=== PATIENT | male | born 1960 | race Hispanic/Latino ===

== ENCOUNTER → 2023-10-13 | Emergency (ER) | payer SELFPAY ==
[~2023-10-13] MED LIST: D5 0.45 NS 1,000 ML IV ONE; DIPHENHYDRAMINE 50 MG/ML VIAL ONE; HALOPERIDOL LACT 5 MG/ML INJ ONE; KETAMINE HCL IN 0.9 % NACL 50 MG/5 ML SYRINGE IV ONE; LORazepam 2 MG/ML VIAL ONE; NA CHLORIDE 0.9% 1,000 ML ONE; TENECTEPLASE 50 MG/10 ML VIAL IV ONE
[2023-10-13 20:24] LABS: Absolute Lymphocytes (CBC) 2.3 K/uL (0.7-4.9); Hematocrit 40.4 % (39.6-49.0); Lymphocytes % 26.3 % (15.3-44.8); MCV 94.2 fL (80-100); MPV 6.6 fL (7.6-11.3); Platelets 253 thou/uL (152-406); RBC Red Blood Cell Count 4.29 M/uL (4.33-5.43)
[2023-10-13 20:34] LABS: Protime INR 1.08
[2023-10-13 20:46] LABS: ALT/SGPT 36 U/L (16-61); Albumin 3.4 g/dL (3.4-5.0); Alkaline Phosphatase 81 U/L (45-117); BUN Blood Urea Nitrogen 23 mg/dL (7-18); Bicarbonate 26 mEq/L (21-32); Bilirubin Total 0.5 mg/dL (0.2-1.0); Glomerular Filtration Rate 74 ml/min (=/>90); Glucose Level 98 mg/dL (74-106); Protein, Total 6.4 g/dL (6.4-8.2); Sodium Level 138 mEq/L (136-145); Troponin High Sensitivity 11.5 pg/mL (<58.9)
[2023-10-13 20:47] LABS: AST/SGOT 28 U/L (15-37); Bilirubin Direct < 0.1 mg/dL (0-0.2); Bilirubin Indirect, Calculated ND mg/dL (0.2-0.8); Potassium 4.6 mEq/L (3.5-5.1)
[2023-10-13 20:48] LABS: Magnesium 2.2 mg/dL (1.6-2.4)
--- NOTE | 2023-10-13 20:49 | RAD REPORT ---
EXAM DESCRIPTION: CT - Ct Stroke Brain Wo Cont - 10/13/2023 8:19 pm CLINICAL HISTORY: STROKE ALERT COMPARISON: No comparisons TECHNIQUE: Noncontrast head CT images were obtained without IV contrast. Multiplanar reformats were generated and reviewed. All CT scans are performed using dose optimization technique as appropriate and may include automated exposure control or mA/KV adjustment according to patient size. FINDINGS: No intracranial hemorrhage, mass, or edema. Midline structures are unremarkable. Normal ventricular caliber for age. Mercado-white matter differentiation is preserved, without evidence of acute infarct. No abnormal extra- axial fluid collections. Mastoid air cells and visualized portions of the paranasal sinuses are clear. No acute bony findings. IMPRESSION: No evidence of an acute intracranial process. The findings were communicated to Yuli Davila on 10/13/2023 at 20:44 hours.
--- NOTE | 2023-10-13 20:51 | RAD REPORT ---
EXAM DESCRIPTION: CT - Head angio - 10/13/2023 8:25 pm CLINICAL HISTORY: STROKE ALERT COMPARISON: Ct Stroke Brain Wo Cont dated 10/13/2023 TECHNIQUE: Axial CT angiography images of the head was performed with multiplanar and maximum intens ity projection reconstructions. Images performed following intravenous administration of 100mL Isovue 370. All CT scans are performed using dose optimization technique as appropriate and may include automated exposure control or mA/KV adjustment according to patient size. FINDINGS: Nondiagnostic exam due to extensive patient motion, with poor resolution of the [facility] of Max vessels despite attempts at repeat imaging. The visualized portions of the dural venous sinuses are grossly patent. IMPRESSION: Nondiagnostic exam as above.
--- NOTE | 2023-10-13 20:53 | RAD REPORT ---
EXAM DESCRIPTION: CT - Neck Angio - 10/13/2023 8:25 pm CLINICAL HISTORY: left hemiparesis COMPARISON: No comparisons TECHNIQUE: Axial CT angiography images of the head was performed with multiplanar and maximum intens ity projection reconstructions. Images performed following intravenous administration of 100mL Isovue 370. All CT scans are performed using dose optimization technique as appropriate and may include automated exposure control or mA/KV adjustment according to patient size. Quantification of carotid stenosis, if any, is performed according to NASCET criteria. FINDINGS: A left aortic arch is identified with variant 4 vessel configuration of the great vessels, with the left vertebral artery arising directly from the arch as the third vessel. The exam is otherwise nondiagnostic secondary to extensive patient motion. Major arterial and venous structures of the neck are not well resolved. Osseous structures are also not well resolved The visualized lung apices are unremarkable IMPRESSION: Nondiagnostic exam for the reasons mentioned above, with the exception of the aortic arc h which appears unremarkable. Yuli Davila in the ED was notified of this result. CAROTID STENOSIS REFERENCE USING NASCET CRITERIA: % ICA stenosis = (1 - narrowest ICA diameter/diameter of distal cervical ICA) x 100. Mild - <50% stenosis. Moderate - 50-69% stenosis. Severe - 70-94% stenosis. Near occlusion - 95-99% stenosis. Occluded - 100% stenosis.
--- NOTE | 2023-10-13 21:13 | EDPHYS ---
Physician Documentation [facility] Name: Christian Carroll Age: 63 yrs Sex: Male : 1960 Arrival Date: 10/13/2023 Time: 20:00 Bed 4 Private MD: ED Physician Jerry Merrill HPI: 10/13 20:13 This 63 yrs old Male presents to ER via Unassigned with complaints of Altered sp4 mental status . 20:13 63-year-old male brought in by EMS for choking episode at home. EMS reports on arrival sp4 patient has had sign of a stroke with left-sided facial asymmetry. On arrival to the emergency department patient has a dense left-sided hemiparesis also left visual field cut and gaze deviation to the right. EMS states family does not know the time of symptom onset. Last known well time is unknown. . 20:32 Correction --- the family arrived and we establish a timeframe for symptom onset. sp4 Family now states that specifically patient now states that symptom onset was at 6:30 PM after the dinner. Patient was drinking hot chocolate he began choking and developed altered mental status. This time timeframe is established and we will proceed with TNK. His states she will consent for TNK. Historical: - Allergies: 20:40 No Known Allergies; jj7 - PMHx: 20:40 Hypertensive disorder; jj7 - PSHx: 20:40 Appendectomy; jj7 - Immunization history:: Adult Immunizations not up to date, Client reports receiving the 2nd dose of the Covid vaccine, Last tetanus immunization: Flu vaccine is not up to date. - Social history:: Smoking status: Patient reports the use of cigarette tobacco products, cigars, Patient/guardian denies using alcohol, street drugs. - Family history:: not pertinent. ROS: 20:13 Constitutional: ROS not available secondary to nonverbal patient sp4 20:13 All other systems are negative, 20:13 Unable to obtain ROS due to altered mental status, patient's inability to understand questions, Exam: 20:13 Constitutional: This is a well developed, well nourished patient who is nonverbal at sp4 this time, dense left-sided paralysis left facial asymmetry gaze deviation to the right. Patient not able to cooperate or provide any history. Head/Face: Normocephalic, atraumatic. Eyes: Pupils equal round and reactive to light, Lids and lashes normal. Conjunctiva and sclera are not injected. Cornea within normal limits. Periorbital areas with no swelling, redness, or edema. ENT: Nares patent. No nasal discharge, no septal abnormalities noted. Tympanic membranes are normal and external auditory canals are clear. Oropharynx with no redness, swelling, or masses, exudates, or evidence of obstruction, uvula midline. Mucous membranes moist. Neck: Trachea midline, no thyromegaly or masses palpated, and no cervical lymphadenopathy. Supple, full range of motion without nuchal rigidity, or vertebral point tenderness. Chest/axilla: Normal chest wall appearance and motion. Nontender with no deformity. No lesions are appreciated. Cardiovascular: Regular rate and rhythm with a normal S1 and S2. No gallops, murmurs, or rubs. Normal PMI, no JVD. No pulse deficits. Respiratory: Lungs have equal breath sounds bilaterally, clear to auscultation and percussion. No rales, rhonchi or wheezes noted. No increased work of breathing, no retractions or nasal flaring. Abdomen/GI: Soft, non-tender, with normal bowel sounds. No distension or tympany. No guarding or rebound. No evidence of tenderness throughout. Back: No spinal tenderness. No costovertebral tenderness. There is sacral decubitus ulcer that is covered by the wound VAC. Male : Normal genitalia with no discharge or lesions. Skin: Warm, dry with normal turgor. Normal color with no rashes, no lesions, and no evidence of cellulitis. MS/ Extremity: Pulses equal, no cyanosis. Neurovascular intact. Exam is limited secondary to left hemiparesis Neuro: Awake and alert , nonverbal at this time, patient is not able to cooperate, left hemiparesis, left facial asymmetry, gaze deviation to the right 22:56 ECG was reviewed by the Attending Physician. EKG at 2126, normal sinus rhythm with sp4 sinus arrhythmia at a rate of 66. Vital Signs: 20:12 BP 153 / 113; Pulse 73; Resp 19; Pulse Ox 98% ; jj7 20:30 BP 152 / 140; Pulse 108; Resp 20; Pulse Ox 98% ; jj7 20:45 BP 143 / 118; Pulse 101; Resp 18; Pulse Ox 97% ; j7 20:51 Weight 65.77 kg; 7 21:00 BP 149 / 129; Pulse 84; Resp 19; Pulse Ox 98% ; j7 21:15 BP 117 / 75; Pulse 60; Resp 19; Pulse Ox 96% ; j7 21:30 BP 91 / 75; Pulse 70; Resp 17; Pulse Ox 99% ; j7 21:45 BP 153 / 85; Pulse 61; Resp 17; Pulse Ox 96% ; j7 22:15 BP 122 / 83; Pulse 64; Resp 19; Pulse Ox 96% ; 7 22:26 Temp 97.6(O); rv1 22:30 BP 125 / 84; Pulse 78; Resp 16; Pulse Ox 98% ; 7 23:00 BP 129 / 104; Pulse 81; Resp 19; Pulse Ox 100% on NC; j7 10/14 00:00 BP 133 / 79; Pulse 60; Resp 17; Temp 97.6; Pulse Ox 99% on NC; j7 NIH Stroke Scale Scores: 10/13 20:13 NIHSS Score: 27 sp4 20:53 NIHSS Score: 26 rv Paramjit Coma Score: 20:13 Eye Response: spontaneous(4). Motor Response: localizes pain(5). Verbal Response: sp4 none(1). Total: 10. 23:45 Eye Response: to voice(3). Motor Response: localizes pain(5). Verbal Response: rv confused(4). Total: 12. MDM: 20:33 ED course: Preliminary CT report reveals no intracranial hemorrhage will go ahead and sp4 order TNK at this time. At this time patient is 2 hours and 4 minutes from the symptom onset. . 20:35 Patient medically screened. sp4 21:11 Differential Diagnosis altered mental status, sepsis, flu. Data reviewed: vital signs, sp4 nurses notes, EMS record, lab test result(s), EKG, radiologic studies, CT scan. ED course: TNK was pushed at 2056 . 23:49 Consideration of Admission/Observation Patient was admitted/placed on observation. sp4 Escalation of care including admission/observation considered. Management of patient was discussed with the following: Preschool Director: Neurologist at the [facility]. ED course: Patient was discussed with neurologist at [facility] Dr. Eid who requested patient transfer via air medical transport. 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 . 10/14 00:01 ED course: Chest - EXAM DESCRIPTION: Romaine Single View10/13/2023 8:39 pm CLINICAL sp4 HISTORY: Left hemiparesis COMPARISON: No comparisons TECHNIQUE: Portable AP view of the chest. FINDINGS: Decreased inspiratory effort limits evaluation. Blunting of the left costophrenic angle may reflect atelectasis, prominent epicardial fat, or a small effusion. No pneumothorax or sizable effusion. The cardiomediastinal contours are unremarkable. IMPRESSION: Blunting of the left costophrenic angle as above.. ED course: CT head - CLINICAL HISTORY: STROKE ALERT COMPARISON: No comparisons TECHNIQUE: Noncontrast head CT images were obtained without IV contrast. Multiplanar reformats were generated and reviewed. All CT scans are performed using dose optimization technique as appropriate and may include automated exposure control or mA/KV adjustment according to patient size. FINDINGS: No intracranial hemorrhage, mass, or edema. Midline structures are unremarkable. Normal ventricular caliber for age. Mercado-white matter differentiation is preserved, without evidence of acute infarct. No abnormal extra-axial fluid collections. Mastoid air cells and visualized portions of the paranasal sinuses are clear. No acute bony findings. IMPRESSION: No evidence of an acute intracranial process. The findings were communicated to Yuli Davila on 10/13/2023 at 20:44 hours. . 00:13 ED course: I was contacted by the neurologist at [facility] who has reported sp4 that patient has a right middle cerebral artery occlusion.. Patient warrants an emergent transfer to [facility] for further intervention. . 00:17 ED course: CT report by radiology at 00:17 right MCA superior division occlusion, Right sp4 ICA occlusion . . 00:30 ED course: CT - IMPRESSION: 1. There is little to no opacification of the right ICA sp4 consistent with occlusion. 2. There is reconstitution of the right MCA with diminished opacification. There is abrupt cut off of the superior division of the right MCA (M2) suggestive of occlusion. 3. The right SOWMYA is normally opacified. . ED course: CTA - COMPARISON: None. FINDINGS: VASCULATURE: Right common carotid artery: Unremarkable. No occlusion or significant stenosis. No dissection. Right internal carotid artery: There is abrupt cut off of the right ICA at the level of C3 consistent with occlusion. Right external carotid artery: Unremarkable. No occlusion. Right vertebral artery: Unremarkable. No occlusion or significant stenosis. No dissection. Left common carotid artery: Unremarkable. No occlusion or significant stenosis. No dissection. Left internal carotid artery: Unremarkable. Extracranial segment is patent with no occlusion or significant stenosis. No dissection. Left external carotid artery: Unremarkable. No occlusion. Left vertebral artery: Diminutive left vertebral artery. No occlusion or significant stenosis. No dissection. NECK: Bones/joints: See above. Soft tissues: Unremarkable. Lung apices: Clear. 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 . 10/13 20:12 Order name: Basic Metabolic Panel; Complete Time: :57 [facility] 10/13 20:12 Order name: CBC with Diff; Complete Time: : [facility] 10/13 20:12 Order name: Hepatic Function; Complete Time: : [facility] 10/13 20:12 Order name: High Sensitivity Troponin; Complete Time: :57 [facility] 10/13 20:12 Order name: Magnesium; Complete Time: :57 [facility] 10/13 20:12 Order name: Protime (+inr); Complete Time: :57 [facility] 10/13 20:12 Order name: Ptt, Activated; Complete Time: :57 [facility] 10/13 20:12 Order name: UDS; Complete Time: 23:48 [facility] 10/13 20:12 Order name: CT Head Angio; Complete Time: :57 [facility] 10/13 20:12 Order name: CT Neck Angio; Complete Time: :57 [facility] 10/13 20:12 Order name: CT Stroke Brain w/o Contrast; Complete Time: :57 [facility] 10/13 20:12 Order name: Stroke CXR 1 View; Complete Time: :57 [facility] 10/13 22:21 Order name: CT Head Angio [facility] 10/13 22:22 Order name: CT Neck Angio [facility] 10/13 20:12 Order name: EKG; Complete Time: 20:13 [facility] 10/13 20:12 Order name: Accucheck; Complete Time: 20:44 [facility] 10/13 20:12 Order name: Cardiac monitoring; Complete Time: 20:44 sp4 10/13 20:12 Order name: EKG - Nurse/Tech; Complete Time: 21:54 sp4 10/13 20:12 Order name: IV Saline Lock; Complete Time: 20:44 sp4 10/13 20:12 Order name: Labs collected and sent; Complete Time: 20:44 sp4 10/13 20:12 Order name: NPO; Complete Time: 20:44 sp4 10/13 20:12 Order name: O2 Per Protocol; Complete Time: 20:44 sp4 10/13 20:12 Order name: O2 Sat Monitoring; Complete Time: 20:44 sp4 10/13 20:12 Order name: Stroke Swallow Screen; Complete Time: 22:17 sp4 10/13 21:55 Order name: [place]; Complete Time: 22:01 sp4 EC/08 22:56 Rate is 66 beats/min. Rhythm is regular, Normal Sinus Rhythm. QRS [place] is Normal. LA sp4 interval is normal. QRS interval is normal. QT interval is normal. No Q waves. T waves are Normal. No ST changes noted. Clinical impression: Normal ECG. Interpreted by me. Reviewed by me. Administered Medications: 20:57 Drug: TNK FOR STROKE - Tenecteplase IV 0.25 mg/kg IV at per protocol once; MAX rv DOSE 25 mg, IVP over 5 seconds {Co-Signature: jj7 (Caden Lancaster RN).} Route: IV; Rate: per protocol; Site: left antecubital; 23:47 Follow up: Response: No adverse reaction jj7 21:13 Drug: Ativan IVP 2 mg IVP once Route: IVP; Site: left antecubital; jj7 23:00 Follow up: Response: Anxiety decreased jj7 21:50 Drug: Haloperidol IVP 5 mg IVP once Route: IVP; Site: left antecubital; jj7 23:00 Follow up: Response: No adverse reaction; Anxiety decreased jj7 22:17 Drug: NS 0.9% IV 1000 ml IV at 1 bolus Per protocol; 1000 mL bolus Route: IV; Rate: 1 jj7 bolus; Site: left antecubital; 10/14 00:18 Follow up: IV Status: Infusion continued upon transfer j7 10/13 22:17 Drug: D5-NS IV 1000 ml IV at 125 ml/hr continuous Route: IV; Rate: 125 ml/hr; Site: [facility] left antecubital; 10/14 00:18 Follow up: IV Status: Infusion continued upon transfer jj7 10/13 23:02 Drug: diphenhydrAMINE IVP 25 mg IVP once Route: IVP; Site: left antecubital; jj7 23:46 Follow up: Response: No adverse reaction j7 23:03 Drug: Ativan IVP 1 mg IVP once Route: IVP; Site: left antecubital; jj7 23:47 Follow up: Response: No adverse reaction j7 23:16 Drug: Ketamine IVP 100 mg IVP once {Note: ADMIN BY DR GIMENEZ.} Route: IVP; Site: left [facility] antecubital; 23:46 Follow up: Response: RASS: Light sedation (-2) jj7 Disposition Summary: 10/13/23 21:12 Transfer Ordered Notes: Transfer Location: [facility] sp4 Reason: Higher level of care sp4 Condition: Stable sp4 Problem: new sp4 Symptoms: have improved sp4 Accepting Physician: [place] (10/14/23 00:17) jj7 Diagnosis - Acute ischemic CVA, left-sided hemiparesis, global aphasia sp4 - Right middle cerebral artery occlusion sp4 - Agitation requiring sedation sp4 Forms: - Medication Reconciliation Form sp4 - SBAR form sp4 NIH Stroke Scale - NIH Stroke Score Date: 10/13/2023 Time: 20:13 Total Score = 27 10. Dysarthria (speech clarity - read or repeat words) - 2(Severe) 11. Extinction and Inattention (visual/tactile/auditory/spatial/personal) - 2(Profound) 1a. Level of Consciousness (LOC) - 0(Alert) 1b. Level of Consciousness (LOC) (Month \T\ Age) - 2(Neither) 1c. LOC Commands (Open \T\ Closes Eyes/Geodetic Survey Director) - 1(One) 2. Best Gaze (Lateral Gaze Paresis) - 2(Forced deviation) 3. Visual Field Loss - 2(Complete hemianopia) 4. Facial Palsy - 3(Complete paralysis) 5a. Left Arm: Motor (10-second hold) - 4(No movement) 5b. Right Arm: Motor (10-second hold) - 0(No drift) 6a. Left Leg: Motor (5-second hold - always test supine) - 4(No movement) 6b. Right Leg: Motor (5-second hold - always test supine) - 0(No drift) 7. Limb Ataxia (finger/nose \T\ heel/naqvi - test with eyes open) - 0(Absent) 8. Sensory Loss (pinprick arms/legs/face) - 2(Severe to total loss) 9. Best Language: Aphasia (description/naming/reading) - 3(Mute, global aphasia) Initials: sp4 NIH Stroke Scale - NIH Stroke Score Date: 10/13/2023 Time: 20:53 Total Score = 26 10. Dysarthria (speech clarity - read or repeat words) - 2(Severe) 11. Extinction and Inattention (visual/tactile/auditory/spatial/personal) - 2(Profound) 1a. Level of Consciousness (LOC) - 0(Alert) 1b. Level of Consciousness (LOC) (Month \T\ Age) - 2(Neither) 1c. LOC Commands (Open \T\ Closes Eyes/Geodetic Survey Director) - 1(One) 2. Best Gaze (Lateral Gaze Paresis) - 1(Partial gaze palsy) 3. Visual Field Loss - 1(Partial hemianopia) 4. Facial Palsy - 3(Complete paralysis) 5a. Left Arm: Motor (10-second hold) - 4(No movement) 5b. Right Arm: Motor (10-second hold) - 0(No drift) 6a. Left Leg: Motor (5-second hold - always test supine) - 4(No movement) 6b. Right Leg: Motor (5-second hold - always test supine) - 0(No drift) 7. Limb Ataxia (finger/nose \T\ heel/naqvi - test with eyes open) - 2(Present in two limbs) 8. Sensory Loss (pinprick arms/legs/face) - 2(Severe to total loss) 9. Best Language: Aphasia (description/naming/reading) - 2(Severe aphasia) Initials: rv Signatures: Dispatcher [employer] EDTerrence Valle RN RN rv Johnson, Juwairiyah, RN RN jjJerry Liz MD MD sp4 Caden Lancaster RN jj7 Corrections: (The following items were deleted from the chart) 23:51 21:12 [facility] neurology sp4 sp4 10/14 00:17 10/13 23:51 [facility] neurology sp4 jj7
--- NOTE | 2023-10-13 21:13 | ER ---
Nurse's Notes [facility] Name: Christian Carroll Age: 63 yrs Sex: Male : 1960 Arrival Date: 10/13/2023 Time: 20:00 Bed 4 Private MD: Diagnosis: Acute ischemic CVA, left-sided hemiparesis, global aphasia;Right middle cerebral artery occlusion;Agitation requiring sedation Presentation: 10/13 20:12 Chief complaint: EMS states: EMS STATES THEY WERE ORIGINALLY CALLED OUT FOR CHOKING. jj7 FAMILY REPORTED TO THEM HE WAS ON THE COUCH DRINKING HOT CHRISTINE AND STARTED TO CHOKE. WHEN THEY SAW PT HE HAD LEFT SIDED FACIAL DROOPING. WHEN EMS ASKED FAMILY DID THAT JUST START. FAMILY INFORMED EMS HIS FACE HAS BEEN LOOKING "WEIRD" ALL DAY LONG. Coronavirus screen: At this time, the client does not indicate any symptoms associated with coronavirus-19. Ebola Screen: No symptoms or risks identified at this time. Initial Sepsis Screen: Does the patient meet any 2 criteria? No. Patient's initial sepsis screen is negative. Does the patient have a suspected source of infection? No. Patient's initial sepsis screen is negative. Risk Assessment: Do you want to hurt yourself or someone else? Patient reports no desire to harm self or others. Onset of symptoms is unknown. 20:12 Method Of Arrival: EMS: [facility] jj7 20:12 Acuity: JESIKA 2 jj7 20:12 Care prior to arrival: IV initiated. 20 GA, in the left antecubital area, Glucose jj7 check: 104. 20:12 Chief complaint: Spouse and/or significant other states: STATES ALL OF THIS jj7 STARTED AT 1830. AFTER THEY ATE DINNER HE WANTED SOME CHOCOLATE AND HE GOT UP AND THEY THOUGHT HE WAS CHOKING. Triage Assessment: 20:12 General: Appears distressed, Behavior is flat, CONFUSED. Pain: Unable to use pain jj7 scale. Does not appear to understand pain scale. Neuro: Gooden Agitation-Sedation Scale (RASS): Level of Consciousness is awake, confused, Oriented to NOT ANSWERING ANY QUESTIONS. Historical: - Allergies: 20:40 No Known Allergies; jj7 - PMHx: 20:40 Hypertensive disorder; jj7 - PSHx: 20:40 Appendectomy; jj7 - Immunization history:: Adult Immunizations not up to date, Client reports receiving the 2nd dose of the Covid vaccine, Last tetanus immunization: Flu vaccine is not up to date. - Social history:: Smoking status: Patient reports the use of cigarette tobacco products, cigars, Patient/guardian denies using alcohol, street drugs. - Family history:: not pertinent. Screenin:05 [facility] ED Fall Risk Assessment (Adult) History of falling in the last 3 months, jj7 including since admission No falls in past 3 months (0 pts) Confusion or Disorientation Yes (5 pts) Intoxicated or Sedated No (0 pts) Impaired Gait Yes (1 pt) Mobility Assist Device Used No (0 pt) Altered Elimination No (0 pt) Score/Fall Risk Level 3 or more points = High Risk Oriented to surroundings, Maintained a safe environment, Educated pt \\T\\ family on fall prevention, incl call for assistance when getting out of bed. Abuse screen: Denies threats or abuse. Nutritional screening: No deficits noted. Tuberculosis screening: No symptoms or risk factors identified. 22:21 [place] Swallow Protocol Exclusion Criteria: NPO for medical/surgical reason by provider jj7 order Yes. Assessment: 21:00 Reassessment:. General: Behavior is agitated, uncooperative. jj7 21:15 Reassessment: PT OFF UNIT FOR CT. jj7 21:57 General: Behavior is calm. Neuro:. jj7 23:24 Reassessment: PT BACK IN ROOM. jj7 23:55 Reassessment: REPORT GIVEN TO PEDRO LUIS RN WITH IR AT [facility]. jj7 10/14 00:04 Reassessment: [facility] AT BEDSIDE TO TRANSFER PT. REPORT GIVE TO [facility]W. jj7 00:16 Reassessment: REPORT GIVEN TO PETTY DOWELL AT [facility] ICU. jj7 Vital Signs: 10/13 20:12 BP 153 / 113; Pulse 73; Resp 19; Pulse Ox 98% ; jj7 20:30 BP 152 / 140; Pulse 108; Resp 20; Pulse Ox 98% ; jj7 20:45 BP 143 / 118; Pulse 101; Resp 18; Pulse Ox 97% ; jj7 20:51 Weight 65.77 kg; jj7 21:00 BP 149 / 129; Pulse 84; Resp 19; Pulse Ox 98% ; j7 21:15 BP 117 / 75; Pulse 60; Resp 19; Pulse Ox 96% ; j7 21:30 BP 91 / 75; Pulse 70; Resp 17; Pulse Ox 99% ; jj7 21:45 BP 153 / 85; Pulse 61; Resp 17; Pulse Ox 96% ; jj7 22:15 BP 122 / 83; Pulse 64; Resp 19; Pulse Ox 96% ; j7 22:26 Temp 97.6(O); rv1 22:30 BP 125 / 84; Pulse 78; Resp 16; Pulse Ox 98% ; jj7 23:00 BP 129 / 104; Pulse 81; Resp 19; Pulse Ox 100% on NC; j7 10/14 00:00 BP 133 / 79; Pulse 60; Resp 17; Temp 97.6; Pulse Ox 99% on NC; j7 Paramjit Coma Score: 10/13 20:13 Eye Response: spontaneous(4). Motor Response: localizes pain(5). Verbal Response: sp4 none(1). Total: 10. 23:45 Eye Response: to voice(3). Motor Response: localizes pain(5). Verbal Response: rv confused(4). Total: 12. NIH Stroke Scale Scores: 20:13 NIHSS Score: 27 sp4 20:53 NIHSS Score: 26 rv ED Course: 20:05 Patient has correct armband on for positive identification. Placed in gown. Bed in low jj7 position. Call light in reach. Side rails up X2. Adult w/ patient. Client placed on continuous cardiac and pulse oximetry monitoring. NIBP monitoring applied. clinical research monitor on. Pulse ox on. Warm blanket given. 20:05 No provider procedures requiring assistance completed. Maintain EMS IV. Dressing jj7 intact. Good blood return noted. Site clean \\T\\ dry. Gauge \\T\\ site: 20 L AC. 20:12 Patient arrived in ED. jj7 20:12 Jerry Merrill MD is Attending Physician. sp4 20:12 Arm band placed on right wrist. Patient placed in an exam room, on a stretcher. jj7 20:19 Triage completed. jj7 20:21 CT Stroke Brain w/o Contrast In Process Unspecified. EDMS 20:27 CT Head Angio In Process Unspecified. EDMS 20:27 CT Neck Angio In Process Unspecified. EDMS 20:41 Stroke CXR 1 View In Process Unspecified. EDMS 20:45 Basic Metabolic Panel Sent. jj7 20:45 Hepatic Function Sent. jj7 20:45 High Sensitivity Troponin Sent. jj7 20:45 Magnesium Sent. jj7 21:50 [place] cath inserted, using sterile technique, 16 Fr., Patient tolerated well. jj7 22:08 Initiated transfer with Macy at [facility]. rv1 22:17 UDS Sent. jj7 22:37 pt accepted [facility] [address] [id number] bed 11. pt to be transported by [facility] ([facility]) eta 10 mins. 23:20 CT Head Angio In Process Unspecified. EDMS 23:21 CT Neck Angio In Process Unspecified. EDMS 23:[address] cleaning, accepting admin saleem renteria. [facility] 10/14 00:16 Patient transferred, IV remains in place. jj7 Administered Medications: 10/13 20:57 Drug: TNK FOR STROKE - Tenecteplase IV 0.25 mg/kg IV at per protocol once; MAX rv DOSE 25 mg, IVP over 5 seconds {Co-Signature: jj7 (Caden Lancaster RN).} Route: IV; Rate: per protocol; Site: left antecubital; 23:47 Follow up: Response: No adverse reaction jj7 21:13 Drug: Ativan IVP 2 mg IVP once Route: IVP; Site: left antecubital; jj7 23:00 Follow up: Response: Anxiety decreased jj7 21:50 Drug: Haloperidol IVP 5 mg IVP once Route: IVP; Site: left antecubital; jj7 23:00 Follow up: Response: No adverse reaction; Anxiety decreased jj7 22:17 Drug: NS 0.9% IV 1000 ml IV at 1 bolus Per protocol; 1000 mL bolus Route: IV; Rate: 1 jj7 bolus; Site: left antecubital; 10/14 00:18 Follow up: IV Status: Infusion continued upon transfer jj7 10/13 22:17 Drug: D5-NS IV 1000 ml IV at 125 ml/hr continuous Route: IV; Rate: 125 ml/hr; [facility]; 10/14 00:18 Follow up: IV Status: Infusion continued upon transfer [facility] 10/13 23:02 Drug: diphenhydrAMINE IVP 25 mg IVP once Route: IVP; Site: left antecubital; [facility] 23:46 Follow up: Response: No adverse reaction [facility] 23:03 Drug: Ativan IVP 1 mg IVP once Route: IVP; [facility] 23:47 Follow up: Response: No adverse reaction [facility] 23:16 Drug: Ketamine IVP 100 mg IVP once {Note: ADMIN BY DR GIMENEZ.} Route: IVP; Site: left [address]; 23:46 Follow up: Response: RASS: Light sedation (-2) [facility] Medication: 20:05 VIS not applicable for this client. [facility] Outcome: 21:12 ER care complete, transfer ordered by MD. hadley 10/14 00:15 Transferred by helicopter to [facility], [facility] Condition: stable 00:17 Patient left the ED. [facility] NIH Stroke Scale - NIH Stroke Score Date: 10/13/2023 Time: 20:13 Total Score = 27 10. Dysarthria (speech clarity - read or repeat words) - 2(Severe) 11. Extinction and Inattention (visual/tactile/auditory/spatial/personal) - 2(Profound) 1a. Level of Consciousness (LOC) - 0(Alert) 1b. Level of Consciousness (LOC) (Month \\T\\ Age) - 2(Neither) 1c. LOC Commands (Open \\T\\ Closes Eyes/Electric Razor Assembler) - 1(One) 2. Best Gaze (Lateral Gaze Paresis) - 2(Forced deviation) 3. Visual Field Loss - 2(Complete hemianopia) 4. Facial Palsy - 3(Complete paralysis) 5a. Left Arm: Motor (10-second hold) - 4(No movement) 5b. Right Arm: Motor (10-second hold) - 0(No drift) 6a. Left Leg: Motor (5-second hold - always test supine) - 4(No movement) 6b. Right Leg: Motor (5-second hold - always test supine) - 0(No drift) 7. Limb Ataxia (finger/nose \\T\\ heel/naqvi - test with eyes open) - 0(Absent) 8. Sensory Loss (pinprick arms/legs/face) - 2(Severe to total loss) 9. Best Language: Aphasia (description/naming/reading) - 3(Mute, global aphasia) Initials: sp4 NIH Stroke Scale - NIH Stroke Score Date: 10/13/2023 Time: 20:53 Total Score = 26 10. Dysarthria (speech clarity - read or repeat words) - 2(Severe) 11. Extinction and Inattention (visual/tactile/auditory/spatial/personal) - 2(Profound) 1a. Level of Consciousness (LOC) - 0(Alert) 1b. Level of Consciousness (LOC) (Month \\T\\ Age) - 2(Neither) 1c. LOC Commands (Open \\T\\ Closes Eyes/Electric Razor Assembler) - 1(One) 2. Best Gaze (Lateral Gaze Paresis) - 1(Partial gaze palsy) 3. Visual Field Loss - 1(Partial hemianopia) 4. Facial Palsy - 3(Complete paralysis) 5a. Left Arm: Motor (10-second hold) - 4(No movement) 5b. Right Arm: Motor (10-second hold) - 0(No drift) 6a. Left Leg: Motor (5-second hold - always test supine) - 4(No movement) 6b. Right Leg: Motor (5-second hold - always test supine) - 0(No drift) 7. Limb Ataxia (finger/nose \\T\\ heel/naqvi - test with eyes open) - 2(Present in two limbs) 8. Sensory Loss (pinprick arms/legs/face) - 2(Severe to total loss) 9. Best Language: Aphasia (description/naming/reading) - 2(Severe aphasia) Initials: rv Signatures: Dispatcher [employer] Terrence Ratliff RN RN Caden Pineda RN RN jj7 Savita Hart rv1 Jerry Merrill MD MD spOfelia Willoughby Juwairiyah RN jj7 Corrections: (The following items were deleted from the chart) 10/13 23:24 23:17 Reassessment: PT OFF UNIT FOR CT jchris jj7
--- NOTE | 2023-10-13 21:22 | RAD REPORT ---
EXAM DESCRIPTION: Romaine Single View10/13/2023 8:39 pm CLINICAL HISTORY: Left hemiparesis COMPARISON: No comparisons TECHNIQUE: Portable AP view of the chest. FINDINGS: Decreased inspiratory effort limits evaluation. Blunting of the left costophrenic angle ma y reflect atelectasis, prominent epicardial fat, or a small effusion. No pneumothorax or sizable eff usion. The cardiomediastinal contours are unremarkable. IMPRESSION: Blunting of the left costophrenic angle as above.
[2023-10-13 23:02] LABS: Barbiturates NEGATIVE (NEGATIVE); Benzodiazepines NEGATIVE (NEGATIVE); Cocaine NEGATIVE (NEGATIVE); METHAMPHETAM NEGATIVE (NEGATIVE); Methadone NEGATIVE (NEGATIVE); Opiates NEGATIVE (NEGATIVE); Phencyclidine NEGATIVE (NEGATIVE); THC Cannibis POSITIVE (NEGATIVE)
[2023-10-14 04:31] VITALS: BP 133/79; TEMP 97.6; O2SAT 99
--- NOTE | 2023-10-14 17:24 | RAD REPORT ---
EXAM DESCRIPTION: CT - Neck Angio - 10/14/2023 6:43 am CLINICAL HISTORY: The patient is 63 years old and is Male; acute TECHNIQUE: Routine carotid CT angiography protocol was performed with intravenous contrast. NASCET criteria using the distal ICAs for comparison were used for evaluation of stenoses. Sagittal and c oronal reformatted images were created and reviewed. This CT exam was performed using one or more o f the following dose reduction techniques: automated exposure control, adjustment of the mA and/or kV according to patient size, and/or use of iterative reconstruction technique. MIP reconstructed i mages were created and reviewed. COMPARISON: None. FINDINGS: VASCULATURE: Right common carotid artery: Unremarkable. No occlusion or significant stenosis. No dissectio n. Right internal carotid artery: There is abrupt cut off of the right ICA at the level of C3 consis tent with occlusion. Right external carotid artery: Unremarkable. No occlusion. Right vertebral artery: Unremarkable. No occlusion or significant stenosis. No dissection. Left common carotid artery: Unremarkable. No occlusion or significant stenosis. No dissection . Left internal carotid artery: Unremarkable. Extracranial segment is patent with no occlusion or significant stenosis. No dissection. Left external carotid artery: Unremarkable. No occlusion. Left vertebral artery: Diminutive left vertebral artery. No occlusion or significant stenosis. No dissection. NECK: Bones/joints: See above. Soft tissues: Unremarkable. Lung apices: Clear. CAROTID STENOSIS REFERENCE USING NASCET CRITERIA: % ICA stenosis = (1 - narrowest ICA diameter/diameter of distal cervical ICA) x 100. Mild - <50% stenosis. Moderate - 50-69% stenosis. Severe - 70-94% stenosis. Near occlusion - 95-99% stenosis. Occluded - 100% stenosis. 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 THIS REPORT CONTAINS FINDINGS THAT MAY BE CRITICAL TO PATIENT CARE: The findings were verbally discus sed via telephone conference with Dr. Jerry Merrill by Dr. Galo Tse on 10/14/2023 12:17 AM LAW OFFICE MANAGER .The results were acknowledged and understood. Electronically signed by: Galo Tse MD 10/14/2023 12:25 AM LAW OFFICE MANAGER Due to temporary technical issues with the PACS/Fluency reporting system, reports are being signed by the in house radiologists without review as a courtesy to insure prompt reporting. The interpreting radiologist is fully responsible for the content of the report.
--- NOTE | 2023-10-14 17:29 | RAD REPORT ---
EXAM DESCRIPTION: CT - Head angio - 10/14/2023 6:43 am ADDENDUM #1 THIS REPORT CONTAINS FINDINGS THAT MAY BE CRITICAL TO PATIENT CARE: The findings were verbally discus sed via telephone conference with Dr. Jerry Merrill by Dr. Galo Tse on 10/14/2023 12:19 AM DEBURRER .The results were acknowledged and understood. Electronically signed by: Galo Tse MD 10/14/2023 12:19 AM [facility] End of Addendum EXAM: CT Angiography Head With Intravenous Contrast CLINICAL HISTORY: The patient is 63 years old and is Male; STROKE ALERT TECHNIQUE: Axial computed tomographic angiography images of the head with intravenous contrast. Sa gittal and coronal reformatted images were created and reviewed. This CT exam was performed using o ne or more of the following dose reduction techniques: automated exposure control, adjustment of th e mA and/or kV according to patient size, and/or use of iterative reconstruction technique. MIP rec onstructed images were created and reviewed. COMPARISON: No relevant prior studies available. FINDINGS: Right internal carotid artery: There is little to no opacification of the right ICA cons istent with occlusion. No aneurysm. Right anterior cerebral artery: The right SOWMYA is normally opacified. No occlusion or significant stenosis. No aneurysm. Right middle cerebral artery: There is reconstitution of the right MCA with diminished opacificat ion. There is abrupt cut off of the superior division of the right MCA (M2) suggestive of occlusion. Right posterior cerebral artery: Right origin PAPER REWINDER. No occlusion or significant stenosis. No aneurysm. Right vertebral artery: Unremarkable as visualized. Left internal carotid artery: No acute findings. Intracranial segment is patent with no signifi cant stenosis. No aneurysm. Left anterior cerebral artery: Unremarkable. No occlusion or significant stenosis. No aneurys m. Left middle cerebral artery: Unremarkable. No occlusion or significant stenosis. No aneurysm. Left posterior cerebral artery: Left origin PAPER REWINDER. No occlusion or significant stenosis. No aneurysm. Left vertebral artery: Diminutive left vertebral artery. Basilar artery: Unremarkable. No occlusion or significant stenosis. No aneurysm. IMPRESSION: 1. There is little to no opacification of the right ICA consistent with occlusion. 2. There is reconstitution of the right MCA with diminished opacification. There is abrupt cut off of the superior division of the right MCA (M2) suggestive of occlusion. 3. The right SOWMYA is normally opacified. Electronically signed by: Galo Tse MD 10/14/2023 12:16 AM DEBURRER Due to temporary technical issues with the PACS/Fluency reporting system, reports are being signed by the in house radiologists without review as a courtesy to insure prompt reporting. The interpreting radiologist is fully responsible for the content of the report.
--- NOTE | 2023-10-15 17:38 | EKG ---
Test Date: 2023-10-13 Test Time: 21:27:44 Wool Buyer: RASTA MEASUREMENT RESULTS: Intervals: Rate: 66 DE: 162 QRSD: 90 QT: 416 QTc: 436 [place]: P: 23 DE: 162 QRS: 19 T: 26 INTERPRETIVE STATEMENTS: Normal sinus rhythm with sinus arrhythmia Normal ECG No previous ECG available for comparison Electronically Signed On 10-15-23 17:34:33 SERVICE SPECIALIST by Zve Darden
== END ==
LOC: ER 20:00
DX: I63.511 Cerebral infarction due to unspecified occlusion or stenosis of right middle cerebral artery (principal); R47.01 Aphasia; G81.94 Hemiplegia, unspecified affecting left nondominant side; R29.727 NIHSS score 27; I10 Essential (primary) hypertension
CPT/HCPCS: 36415; 51702; 70450; 70496; 70498; 71045; 80048; 80076; 80307; 82565; 83735; 84484; 85025; 85610; 85730; 92977; 93005; 96365; 96366; 96375; 99285; J1200; J1630; J3101; J7030; J7799; Q9967

== ENCOUNTER → 2023-10-21 | Emergency (ER) | payer SELFPAY ==
--- NOTE | 2023-10-21 14:50 | RAD REPORT ---
EXAM DESCRIPTION: RAD - Chest Pa And Lat (2 Views) - 10/21/2023 2:03 pm CLINICAL HISTORY: Cough;Congestion COMPARISON: Chest Single View dated 10/13/2023 TECHNIQUE: PA and lateral views of the chest were obtained. FINDINGS: The lungs are clear. Heart size is normal and central vasculature is within normal limits. No pleural effusion or pneumothorax seen. No acute bony finding noted. IMPRESSION: No acute cardiopulmonary process.
--- NOTE | 2023-10-21 15:17 | ER ---
Nurse's Notes [facility] Name: Christian Carroll Age: 63 yrs Sex: Male : 1960 Arrival Date: 10/21/2023 Time: 13:21 Bed 15 Private MD: Diagnosis: Acute upper respiratory infection, unspecified Presentation: 10/21 13:33 Chief complaint: Patient states: He started having fever and generalized body aches ap3 yesterday 10/20/2023. Patient states that he is also having a cough. Coronavirus screen: Client presents with at least one sign or symptom that may indicate coronavirus-19. Ebola Screen: No symptoms or risks identified at this time. Initial Sepsis Screen: Does the patient meet any 2 criteria? No. Patient's initial sepsis screen is negative. Does the patient have a suspected source of infection? No. Patient's initial sepsis screen is negative. Risk Assessment: Do you want to hurt yourself or someone else? Patient reports no desire to harm self or others. Onset of symptoms was October 20, 2023. 13:33 Method Of Arrival: Ambulatory ap3 13:33 Acuity: JESIKA 3 ap3 Triage Assessment: 13:36 General: Appears ill, Behavior is calm, cooperative, appropriate for age, Reports ap3 chills for fever for feeling ill for fatigue for. Pain: Complains of pain in generalized body aches Pain began 1 day ago. Neuro: Level of Consciousness is awake, alert, obeys commands, Oriented to person, place, time, situation. Cardiovascular: Patient's skin is warm and dry. Respiratory: Airway is patent Respiratory effort is even, unlabored, Respiratory pattern is regular, symmetrical. Historical: - Allergies: 13:34 No Known Allergies; ap3 - Home Meds: 13:34 aspirin 81 mg Oral capsule [Active]; carvedilol 6.25 mg oral tablet [Active]; ap3 atorvastatin 80 mg oral tablet [Active]; omeprazole 20 mg Oral capsule,delayed release (e.c.) [Active]; - PMHx: 13:34 Hypertensive disorder; ap3 - Immunization history:: Client reports having NOT received the Covid vaccine. - Social history:: Smoking status: Patient denies any tobacco usage or history of. Screenin:36 [facility] ED Fall Risk Assessment (Adult). Abuse screen: Denies threats or abuse. ap3 Nutritional screening: No deficits noted. Tuberculosis screening: No symptoms or risk factors identified. Assessment: 13:55 Reassessment: No changes from previously documented assessment. Patient and/or family mb9 updated on plan of care and expected duration. Pain level reassessed. Patient is alert, oriented x 3, equal unlabored respirations, skin warm/dry/pink. 15:34 Reassessment: No changes from previously documented assessment. Patient and/or family mb9 updated on plan of care and expected duration. Pain level reassessed. Patient is alert, oriented x 3, equal unlabored respirations, skin warm/dry/pink. Vital Signs: 13:33 BP 119 / 69; Pulse 70; Resp 17; Temp 98.9(O); Pulse Ox 100% ; Weight 111.13 kg; ap3 14:42 BP 102 / 56; Pulse 64; Resp 18; Pulse Ox 100% on R/A; mb9 15:34 BP 101 / 55; Pulse 62; Resp 16; Pulse Ox 100% on R/A; mb9 ED Course: 13:26 Patient arrived in ED. ae5 13:26 Enid Corcoran FNP-C [facility]. kb 13:26 Tomer Field MD is Attending Physician. kb 13:34 Triage completed. ap3 13:37 Arm band placed on left wrist. ap3 13:44 COVID-19 SARS RT PCR Sent. bc6 13:44 Flu Sent. bc6 13:55 Matilde Marvin, RN is Primary Nurse. mb9 13:55 Placed in gown. Bed in low position. Call light in reach. Side rails up X 1. Client mb9 placed on continuous cardiac and pulse oximetry monitoring. NIBP monitoring applied. 13:55 No provider procedures requiring assistance completed. mb9 14:04 Chest Pa And Lat (2 Views) XRAY In Process Unspecified. EDMS 15:34 Patient did not have IV access during this emergency room visit. mb9 Administered Medications: No medications were administered Medication: 13:55 VIS not applicable for this client. mb9 Outcome: 15:16 Discharge ordered by . kb 15:34 Discharged to home ambulatory, with family, mbChiara 15:34 Condition: stable 15:34 Discharge instructions given to patient, family, Instructed on discharge instructions, follow up and referral plans. Demonstrated understanding of instructions, follow-up care, 15:35 Patient left the ED. mb9 Signatures: Dispatcher [employer] [place] Charles, KALIE-C FINANCE LECTURER-Nicolasa Olvera RN RN ap3 Shavonne, Matilde Tejeda RN RN mb9 Thais Banuelos6 Antionette Ware ae5
--- NOTE | 2023-10-21 15:17 | EDPHYS ---
Physician Documentation [facility] Name: Christian Carroll Age: 63 yrs Sex: Male : 1960 Arrival Date: 10/21/2023 Time: 13:21 Bed 15 Private MD: ED Physician Tomer Field HPI: 10/21 13:34 This 63 yrs old Male presents to ER via Unassigned with complaints of kb Bodyache, Cough. 13:34 Pt is a 63 year old male who presents for cough, fever and bodyaches. States the cough kb has been ongoing for about a week, fever and bodyaches started yesterday. . Historical: - Allergies: 13:34 No Known Allergies; ap3 - Home Meds: 13:34 aspirin 81 mg Oral capsule [Active]; carvedilol 6.25 mg oral tablet [Active]; ap3 atorvastatin 80 mg oral tablet [Active]; omeprazole 20 mg Oral capsule,delayed release (e.c.) [Active]; - PMHx: 13:34 Hypertensive disorder; ap3 - Immunization history:: Client reports having NOT received the Covid vaccine. - Social history:: Smoking status: Patient denies any tobacco usage or history of. ROS: 13:35 Abdomen/GI: Negative for abdominal pain, nausea, vomiting, diarrhea, and constipation, kb 13:35 Constitutional: Positive for body aches, chills, fatigue, fever, malaise, 13:35 Respiratory: Positive for cough, 13:35 All other systems are negative, Exam: 13:35 Constitutional: This is a well developed, well nourished patient who is awake, alert, kb and in no acute distress. Head/Face: Normocephalic, atraumatic. ENT: Moist Mucous membranes Cardiovascular: Regular rate Respiratory: Respirations even and unlabored. No increased work of breathing. Talking in full sentences Skin: Warm, dry with normal turgor. Normal color. MS/ Extremity: Pulses equal, no cyanosis. Neurovascular intact. Full, normal range of motion. Vital Signs: 13:33 BP 119 / 69; Pulse 70; Resp 17; Temp 98.9(O); Pulse Ox 100% ; Weight 111.13 kg; ap3 14:42 BP 102 / 56; Pulse 64; Resp 18; Pulse Ox 100% on R/A; mb9 15:34 BP 101 / 55; Pulse 62; Resp 16; Pulse Ox 100% on R/A; mb9 MDM: 13:26 Patient medically screened. kb 13:35 Data reviewed: vital signs, nurses notes. kb 15:15 Differential Diagnosis: Other covid, flu, uri, pneumonia. I considered the following kb discharge prescriptions or medication management in the emergency department I discussed and recommended Over The Counter medications, Antibiotics: At this time antibiotics are not recommended, Antivirals: At this time, antivirals are not recommended. Historians other than the Patient: Family Member: family. Counseling: I had a detailed discussion with the patient and/or guardian regarding the historical points, exam findings, and any diagnostic results supporting the discharge/admit diagnosis, lab results, radiology results, the need for outpatient follow up, a family practitioner, to return to the emergency department if symptoms worsen or persist or if there are any questions or concerns that arise at home. ED course: Resp even and unlabored, lungs clear bilaterally, o2 sat 99% on room air. Pt sleeping comfortably. Family educated on results, otc treatment for symptoms and follow up with PCP. . 10/21 13:28 Order name: Flu; Complete Time: 14:27 kb 10/21 13:28 Order name: COVID-19 SARS RT PCR; Complete Time: 14:37 kb 10/21 13:32 Order name: Chest Pa And Lat (2 Views) XRAY; Complete Time: 14:57 kb Administered Medications: No medications were administered Disposition: 16:04 Co-signature as Attending Physician, Tomer Field MD I reviewed the patient's care rt provided by the Advanced Practice Provider and agree with the diagnosis and treatment plan. Disposition Summary: 10/21/23 15:16 Discharge Ordered Notes: Location: Home kb Condition: Stable kb Diagnosis - Acute upper respiratory infection, unspecified kb Followup: kb - With: Emergency Department - When: As needed - Reason: Worsening of condition Followup: kb - With: Private Physician - When: 2 - 3 days - Reason: Recheck today's complaints, Continuance of care, Re-evaluation by your physician Discharge Instructions: - Discharge Summary Sheet kb - Upper Respiratory Infection, Adult, [id number] kb - Viral Respiratory Infection, [id number] kb Forms: - Medication Reconciliation Form kb - Thank You Letter kb - Antibiotic Education kb - Prescription Opioid Use kb - Patient Portal Instructions kb - Leadership Thank You Letter kb Signatures: Dispatcher [employer] En[place] Charles, KARINAC Nicolasa Jacobs, RN RN ap3 Tomer Field MD MD rt
[2023-10-21 16:52] VITALS: BP 101/55; TEMP 98.9; O2SAT 100
== END ==
LOC: ER 13:21
DX: J06.9 Acute upper respiratory infection, unspecified (principal); Z11.52 Encounter for screening for COVID-19
CPT/HCPCS: 71046; 87635; 87804; 99283

== ENCOUNTER 2024-01-26 13:56 | Emergency (ER) | payer OTHER ==
[2024-01-26 14:44] LABS: Absolute Eosinophils 2.2 K/uL (0-0.5); Absolute Lymphocytes (CBC) 2.7 K/uL (0.7-4.9); Absolute Monocytes 0.9 K/uL (0.1-1.3); Absolute Neutrophil 2.9 K/uL (1.8-8.0); Basophils % 0.4 % (0-1.3); Eosinophils % 25.5 % (0-4.4); Hematocrit 43.9 % (39.6-49.0); Hemoglobin 14.7 g/dL (13.6-17.9); Lymphocytes % 30.5 % (15.3-44.8); MCH 30.6 pg (27.0-35.0); MCHC 33.4 g/dL (32.0-36.0); MCV 91.7 fL (80-100); MPV 6.8 fL (7.6-11.3); Neutrophils % 33.6 % (41.7-73.7); Platelets 224 thou/uL (152-406); RBC Red Blood Cell Count 4.79 M/uL (4.33-5.43); Red Cell Distribution Width 14.6 % (12.1-15.2)
[2024-01-26 14:59] LABS: PTT, Activated Partial Thromb 32.5 SECONDS (24.3-36.9); Protime INR 1.19
[2024-01-26 15:04] LABS: Albumin 3.6 g/dL (3.4-5.0); Albumin/Globulin Ratio 1.1 (1.1-1.8); Anion Gap 5.1 mEq/L (5.0-15.0); Bilirubin Direct 0.2 mg/dL (0-0.2); Bilirubin Indirect, Calculated 0.3 mg/dL (0.2-0.8); Bilirubin Total 0.5 mg/dL (0.2-1.0); Globulin 3.3 g/dL (2.3-3.5); Potassium 4.1 mEq/L (3.5-5.1); Protein, Total 6.9 g/dL (6.4-8.2); Troponin High Sensitivity 7.6 pg/mL (<58.9)
--- NOTE | 2024-01-26 15:07 | RAD REPORT ---
EXAM DESCRIPTION: RAD - Chest Single View - 01/26/2024 3:01 pm CLINICAL HISTORY: DYSPNEA Chest pain. COMPARISON: Chest Pa And Lat (2 Views) dated 10/21/2023; Chest Single View dated 10/13/2023 FINDINGS: Portable technique limits examination quality. The lungs are grossly clear. The heart is normal in size. No displaced fractures. IMPRESSION: No acute intrathoracic process suspected.
--- NOTE | 2024-01-26 15:57 | RAD REPORT ---
EXAM DESCRIPTION: CT - Chest For Pe Angio - 01/26/2024 3:28 pm CLINICAL HISTORY: Chest pain. DYSPNEA COMPARISON: No comparisons TECHNIQUE: CT angiogram of the pulmonary arteries was performed with MIP. All CT scans are performed using dose optimization technique as appropriate and may include automated exposure control or mA/KV adjustment according to patient size. FINDINGS: No evidence of pulmonary thromboembolism. No acute aortic finding demonstrated. The lungs are emphysematous but clear. No significant pericardial or pleural fluid. No concerning bony finding. IMPRESSION: No evidence of pulmonary thromboembolism. COPD.
[2024-01-26] MEDS ORDERED: LEVALBUTEROL 1.25 MG/3 ML NEB ONE (16:08)
--- NOTE | 2024-01-26 16:17 | ER ---
Nurse's Notes [facility] Name: Christian Carroll Age: 63 yrs Sex: Male : 1960 Arrival Date: 01/26/2024 Time: 13:56 Bed 4 Private MD: Diagnosis: Dyspnea, unspecified Presentation: 01/25 14:31 Chief complaint: Patient states: "I've had back pain and SOB for the past few days.". mb9 Coronavirus screen: At this time, the client does not indicate any symptoms associated with coronavirus-19. Ebola Screen: No symptoms or risks identified at this time. Initial Sepsis Screen: Does the patient meet any 2 criteria? No. Patient's initial sepsis screen is negative. Does the patient have a suspected source of infection? No. Patient's initial sepsis screen is negative. Risk Assessment: Do you want to hurt yourself or someone else? Patient reports no desire to harm self or others. Onset of symptoms was January 26, 2024. 14:31 Acuity: JESIKA 3 mb9 14:31 Method Of Arrival: Wheelchair mb9 Historical: - Allergies: 14:11 No Known Allergies; ld1 - Home Meds: 14:29 omeprazole 40 mg Oral capsule,delayed release (e.c.) [Active]; carvedilol 6.25 mg oral mb9 tablet [Active]; atorvastatin 80 mg oral tablet [Active]; aspirin 81 mg Oral capsule [Active]; Fish Oil oral [Active]; - PMHx: 14:11 Hypertensive disorder; ld1 - PSHx: 14:11 Appendectomy; ld1 - Immunization history:: Adult Immunizations up to date. - Infectious Disease History:: Denies. - Social history:: Smoking status: Patient denies any tobacco usage or history of. - Family history:: not pertinent. - Hospitalizations: : No recent hospitalization is reported. Screenin:35 [facility] ED Fall Risk Assessment (Adult) History of falling in the last 3 months, ld1 including since admission No falls in past 3 months (0 pts). Abuse screen: Denies threats or abuse. Denies injuries from another. Nutritional screening: No deficits noted. Tuberculosis screening: No symptoms or risk factors identified. Assessment: 14:35 General: Appears in no apparent distress. comfortable, Behavior is calm, cooperative, ld1 appropriate for age. Pain: Complains of pain in low back area Pain does not radiate. Pain currently is 8 out of 10 on a pain scale. Quality of pain is described as throbbing, Pain began suddenly, Is continuous. Neuro: Level of Consciousness is awake, alert, obeys commands, Oriented to person, place, time, situation, Appropriate for age. Cardiovascular: Capillary refill < 3 seconds Patient's skin is warm and dry. Rhythm is sinus bradycardia. Respiratory: Airway is patent Respiratory effort is even, unlabored, Breath sounds are clear bilaterally. GI: Abdomen is round non-distended. : No signs and/or symptoms were reported regarding the genitourinary system. EENT: No signs and/or symptoms were reported regarding the EENT system. Derm: No signs and/or symptoms reported regarding the dermatologic system. Musculoskeletal: No signs and/or symptoms reported regarding the musculoskeletal system. 17:03 Reassessment: Patient appears in no apparent distress at this time. No changes from mb9 previously documented assessment. Patient and/or family updated on plan of care and expected duration. Pain level reassessed. Patient is alert, oriented x 3, equal unlabored respirations, skin warm/dry/pink. Vital Signs: 14:31 BP 103 / 83; Pulse 58; Resp 18; Temp 98.4; Pulse Ox 99% on R/A; Weight 44.91 kg (M); mb9 Height 5 ft. 5 in. ; 14:34 BP 103 / 83; Pulse 73; Resp 18; Pulse Ox 98% on R/A; ld1 17:03 BP 130 / 83; Pulse 78; Resp 18; Pulse Ox 100% ; mb9 14:31 Body Mass Index 16.47 (44.91 kg, 165.1 cm) mb9 ED Course: 14:01 Patient arrived in ED. im 14:10 Raquel Lizarraga, DELMER is Primary Nurse. ld1 14:17 Eduar Centeno MD is Attending Physician. rn 14:31 Arm band placed on. mb9 14:32 Triage completed. mb9 14:35 Patient has correct armband on for positive identification. Placed in gown. Bed in low ld1 position. Call light in reach. Side rails up X2. sociology research assistant on. Pulse ox on. NIBP on. Door closed. Noise minimized. Warm blanket given. 14:35 Inserted saline lock: 20 gauge in right antecubital area, using aseptic technique. ld1 Blood collected. 14:35 No provider procedures requiring assistance completed. ld1 15:03 XRAY CXR (1 view) In Process Unspecified. EDMS 15:30 CT Chest For PE Angio In Process Unspecified. EDMS 17:04 IV discontinued, intact, bleeding controlled, No redness/swelling at site. Pressure mb9 dressing applied. Administered Medications: 16:12 Drug: Levalbuterol Inhalation 1.25 mg Inhalation once Route: Inhalation; ld1 Medication: 14:35 VIS not applicable for this client. ld1 Outcome: 16:16 Discharge ordered by . rn 17:04 Discharged to home ambulatory, with family, bam 17:04 Condition: stable 17:04 Discharge instructions given to patient, Instructed on discharge instructions, follow up and referral plans. Demonstrated understanding of instructions, follow-up care, medications, Prescriptions given X 1, 17:04 Patient left the ED. ld1 Signatures: Dispatcher [employer] EDMS Eduar Centeno MD MD rn Sims, Lauren, RN RN ld1 Matilde Marvin RN RN mb9 Sharita Vazquez
--- NOTE | 2024-01-26 16:17 | EDPHYS ---
Physician Documentation [facility] Name: Christian Carroll Age: 63 yrs Sex: Male : 1960 Arrival Date: 01/26/2024 Time: 13:56 Bed 4 Private MD: ED Physician Eduar Centeno HPI: 01/25 15:13 This 63 yrs old Male presents to ER via Wheelchair with complaints of rn Shortness Of Breath. 15:13 The patient has shortness of breath at rest. Onset: The symptoms/episode began/occurred rn 3 month(s) ago. Duration: The symptoms are intermittent. The patient's shortness of breath is aggravated by nothing, is alleviated by nothing. Associated signs and symptoms: Pertinent positives: This patient does not have any pertinent positive signs or symptoms associated with shortness of breath. Pertinent negatives: chest pain, non-productive cough, productive cough, fever, hemoptysis. Severity of symptoms: At their worst the symptoms were. 16:08 The patient has experienced similar episodes in the past. The patient has not recently rn seen a physician. Patient reports that since his stroke as well intermittent episodes of shortness of breath. Are not short duration. No fever. No trauma. No productive cough. No hemoptysis. No chest pain. Denies pattern. Historical: - Allergies: 14:11 No Known Allergies; ld1 - Home Meds: 14:29 omeprazole 40 mg Oral capsule,delayed release (e.c.) [Active]; carvedilol 6.25 mg oral mb9 tablet [Active]; atorvastatin 80 mg oral tablet [Active]; aspirin 81 mg Oral capsule [Active]; Fish Oil oral [Active]; - PMHx: 14:11 Hypertensive disorder; ld1 - PSHx: 14:11 Appendectomy; ld1 - Immunization history:: Adult Immunizations up to date. - Infectious Disease History:: Denies. - Social history:: Smoking status: Patient denies any tobacco usage or history of. - Family history:: not pertinent. - Hospitalizations: : No recent hospitalization is reported. ROS: 16:08 Constitutional: Negative for fever, chills, and weight loss, Cardiovascular: Negative rn for chest pain, palpitations, and edema, Respiratory: Negative for cough, wheezing, and pleuritic chest pain, Abdomen/GI: Negative for abdominal pain, nausea, vomiting, diarrhea, and constipation, MS/Extremity: Negative for injury and deformity, Skin: Negative for injury, rash, and discoloration, Neuro: Negative for headache, weakness, numbness, tingling, and seizure, Exam: 15:16 ECG was reviewed by the Attending Physician. rn 16:08 Constitutional: This is a well developed, well nourished patient who is awake, alert, rn and in no acute distress. Head/Face: Normocephalic, atraumatic. Cardiovascular: Regular rate and rhythm. No pulse deficits. Respiratory: Speaking full sentences, unlabored. No increased work of breathing, no retractions or nasal flaring. MS/ Extremity: Pulses equal, no cyanosis. Neurovascular intact. Full, normal range of motion. Equal circumference. Neuro: Awake and alert, GCS 15 Vital Signs: 14:31 BP 103 / 83; Pulse 58; Resp 18; Temp 98.4; Pulse Ox 99% on R/A; Weight 44.91 kg (M); mb9 Height 5 ft. 5 in. ; 14:34 BP 103 / 83; Pulse 73; Resp 18; Pulse Ox 98% on R/A; ld1 17:03 BP 130 / 83; Pulse 78; Resp 18; Pulse Ox 100% ; mb9 14:31 Body Mass Index 16.47 (44.91 kg, 165.1 cm) mb9 MDM: 14:17 Patient medically screened. rn 16:13 Differential diagnosis: Anemia Anxiety Reaction Chronic Obstructive Pulmonary Disease rn Myocardial Infarction pneumonia, Pneumothorax Pulmonary Embolism. Data reviewed: vital signs, nurses notes, lab test result(s), EKG, radiologic studies, CT scan, plain films. 16:16 Care significantly affected by the following chronic conditions: Chronic Obstructive rn Pulmonary Disease. Counseling: I had a detailed discussion with the patient and/or guardian regarding the historical points, exam findings, and any diagnostic results supporting the discharge/admit diagnosis, lab results, radiology results, the need for outpatient follow up, to return to the emergency department if symptoms worsen or persist or if there are any questions or concerns that arise at home. Special discussion: I discussed with the patient/guardian in detail that at this point there is no indication for admission to the hospital. It is understood, however, that if the symptoms persist or worsen the patient needs to return immediately for re-evaluation. 01/25 14:24 Order name: BMP; Complete Time: 15:13 rn 01/25 14:24 Order name: CBC with Diff rn 01/25 14:24 Order name: Hepatic Function; Complete Time: 15:13 rn 01/25 14:24 Order name: Magnesium; Complete Time: 15:13 rn 01/25 14:24 Order name: NT PRO-BNP; Complete Time: 15:13 rn 01/25 14:24 Order name: PT-INR; Complete Time: 15:13 rn 01/25 14:24 Order name: Ptt, Activated; Complete Time: 15:13 rn 01/25 14:24 Order name: Troponin HS; Complete Time: 15:13 rn 01/25 14:24 Order name: CT Chest For PE Angio; Complete Time: 15:58 rn 01/25 14:24 Order name: XRAY CXR (1 view); Complete Time: 15:13 rn 01/25 14:24 Order name: EKG; Complete Time: 14:25 rn 01/25 14:24 Order name: Cardiac monitoring; Complete Time: 14:34 rn 01/25 14:24 Order name: EKG - Nurse/Tech; Complete Time: 14:34 rn 01/25 14:24 Order name: IV Saline Lock; Complete Time: 14:34 rn 01/25 14:24 Order name: Labs collected and sent; Complete Time: 14:34 rn 01/25 14:24 Order name: O2 Per Protocol; Complete Time: 14:34 rn 01/25 14:24 Order name: O2 Sat Monitoring; Complete Time: 14:34 rn EC:16 Rate is 56 beats/min. Rhythm is regular. QRS [place] is Normal. [place] interval is normal. QRS rn interval is normal. QT interval is normal. No Q waves. T waves are Normal. No ST changes noted. Clinical impression: Sinus bradycardia. Interpreted by me. Reviewed by me. Administered Medications: 16:12 Drug: Levalbuterol Inhalation 1.25 mg Inhalation once Route: Inhalation; ld1 Disposition Summary: 01/26/24 16:16 Discharge Ordered Notes: Location: Home rn Problem: an ongoing problem rn Symptoms: have improved rn Condition: Stable rn Diagnosis - Dyspnea, unspecified rn Followup: rn - With: Private Physician - When: As needed - Reason: Recheck today's complaints, Re-evaluation by your physician Discharge Instructions: - Discharge Summary Sheet rn - Shortness of Breath, Adult rn Forms: - Medication Reconciliation Form rn - Antibiotic internal revenue agent - Prescription Opioid Use rn - Patient Portal Instructions rn - Leadership Thank You Letter rn Prescriptions: - albuterol sulfate 90 mcg/actuation Inhalation HFA Aerosol Inhaler - inhale 2 inhalation INHALATION route every 4 to 6 hours As needed as needed for rn bronchospasm; administer via ventilator; 1 unit; Refills: 0, Product Selection Permitted - aspirin 81 mg Oral tablet, delayed release (enteric coated) - take 1 tablet ORAL route daily; 60 tablet; Refills: 0, Product Selection rn Permitted - atorvastatin 80 mg Oral tablet - take 1 tablet ORAL route every evening; 60 tablet; Refills: 0, Product rn Selection Permitted - omeprazole 40 mg Oral capsule,delayed release (e.c.) - take 1 capsule ORAL route daily; 60 capsule; Refills: 0, Product Selection rn Permitted - Carvedilol 6.25 mg Oral Tablet - take 1 tablet ORAL route 2 times per day with food; 60 tablet; Refills: 0, rn Product Selection Permitted Signatures: Dispatcher [employer] Eduar Dumont MD MD rn Sims, Lauren RN RN ld1 Matilde Marvin RN RN mb9
[2024-01-26 17:21] VITALS: BP 130/83; TEMP 98.4; O2SAT 100
[2024-01-26 17:34] LABS: White Blood Cell Scan OK (OK)
[2024-01-26 17:35] LABS: Anisocytosis 1+; Blood Morphology Comment NOTED (NOT SEEN); Platelet Estimate ADEQ; Poikilocytosis 1+
== END 2024-01-26 17:04 | disposition home or self-care (01) ==
LOC: ER 13:56
DX: R06.00 Dyspnea, unspecified (principal); I10 Essential (primary) hypertension; Z79.82 Long term (current) use of aspirin
CPT/HCPCS: 93005; 85025; 80048; 36415; 83735; 85610; 80076; 85730; 84484; 83880; 71275; 71045; 99285; Q9967; J7614